=== PATIENT | female | born 1965 ===

== ENCOUNTER 2022-12-31 15:06 | Emergency (ER) | payer OTHER ==
[2022-12-31 17:55] LABS: SARS-CoV-2 NAA Rapid Test Not Detected (NotDetected)
[2022-12-31] MEDS ORDERED: HYDROcodone/Acetaminophen 5/325 mg Tablet ONE (19:10)
[2022-12-31] MEDS ORDERED: predniSONE 20 MG TAB ONE (19:11)
[2022-12-31] MEDS ORDERED: Ipratropium/Albuterol 3 ML NEB ONE (19:11)
== END 2022-12-31 19:44 | disposition home or self-care (01) ==
LOC: ERS 15:06
DX: J45.901 Unspecified asthma with (acute) exacerbation (principal); I10 Essential (primary) hypertension; F17.210 Nicotine dependence, cigarettes, uncomplicated; Z20.822 Contact with and (suspected) exposure to COVID-19
CPT/HCPCS: 71045; 94640; J7512; J7620